=== PATIENT | female | born 1955 | race Two or more races ===

== ENCOUNTER 2018-09-13 08:00 | Inpatient (IN) | payer OTHER ==
[~2018-09-13] VITALS: Ht 144.8 cm; Wt 52.6 kg
[~2018-09-13 08:00] MED LIST: NABUMETONE500 MG PO; PERCOCET 5/3251 TAB PO
[2018-09-13] MEDS ORDERED: HYDROCHLOROTHIA25 MG (09:45)
[2018-09-13] MEDS ORDERED: PLAVIX75 MG (09:45)
[2018-09-13] MEDS ORDERED: COZAAR50 MG (09:45)
[2018-09-13] MEDS ORDERED: TIROSINT25 MCG (09:45)
[2018-09-13] MEDS ORDERED: NEURONTIN300 MG (09:46)
[2018-09-13] MEDS ORDERED: ZANTAC300 MG (09:46)
[2018-09-13] MEDS ORDERED: TRICOR145 MG (09:46)
[2018-09-13] MEDS ORDERED: SIMVASTATIN40 MG (09:46)
[2018-09-13] MEDS ORDERED: ZOCOR40 MG PO (10:07)
[2018-09-26] MEDS ORDERED: ACETAMINOPHEN-1 EAC2 PO (17:26)
== END 2018-09-26 18:31 | disposition home or self-care (01) | DRG 470 ==
LOC: O/R 09-24 05:50 → SURG 09-24 05:50 → SURH 09-24 07:00 → SURG 09-24 16:41
PROVIDERS: ADMIT Orthopaedic Surgery
PROC: 0MNP0ZZ Release Left Knee Bursa and Ligament, Open Approach (ICD-10-PCS; 2018-09-24)
PROC: 0SRD0JZ Replacement of Left Knee Joint with Synthetic Substitute, Open Approach (ICD-10-PCS; principal; 2018-09-24 07:00)
DX: M17.12 Unilateral primary osteoarthritis, left knee (principal); D62 Acute posthemorrhagic anemia; M81.8 Other osteoporosis without current pathological fracture; I10 Essential (primary) hypertension

== ENCOUNTER 2020-12-20 08:15 | Inpatient (IN) | payer OTHER ==
[~2020-12-20] VITALS: Ht 144.8 cm; Wt 54.0 kg
[~2020-12-20 08:15] MED LIST changes: +ACETAMINOPHEN-1 EAC2 PO; +COZAAR50 MG; +HYDROCHLOROTHIA25 MG; +NEURONTIN300 MG; +PLAVIX75 MG; +SIMVASTATIN40 MG; +TIROSINT25 MCG; +TRICOR145 MG; +ZANTAC300 MG; +ZOCOR40 MG PO
== END 2020-12-30 18:47 | disposition home or self-care (01) | DRG 747 ==
LOC: SURH 12-23 08:15 → O/R 12-29 08:31 → OB/GYN 12-29 19:58
PROVIDERS: ADMIT Specialist; ATTEND Specialist
PROC: 0UBG8ZZ Excision of Vagina, Via Natural or Artificial Opening Endoscopic (ICD-10-PCS; principal; 2020-12-29 07:00)
DX: D28.1 Benign neoplasm of vagina (principal); N76.1 Subacute and chronic vaginitis; A63.0 Anogenital (venereal) warts; R87.619 Unspecified abnormal cytological findings in specimens from cervix uteri; I10 Essential (primary) hypertension; E03.8 Other specified hypothyroidism; E78.5 Hyperlipidemia, unspecified

== ENCOUNTER 2025-05-03 09:19 | Inpatient (IN) | payer OTHER ==
[~2025-05-03] VITALS: Ht 142.2 cm; Wt 52.2 kg
[2025-05-03] MEDS ORDERED: LEVOTHYROXINE25 MCG (09:51)
[2025-05-03] MEDS ORDERED: NASAL MIST126 ML (09:51)
[2025-05-03] MEDS ORDERED: 0.9 % SODIUM CHLORIDE 1,000 ML IV SCH (10:15)
[2025-05-03] MEDS ORDERED: FAMOTIDINE/PF 20 MG/2 ML VIAL IV ONE (10:15)
[2025-05-03] MEDS ORDERED: METRONIDAZOLE/SODIUM CHLORIDE 500 MG/100 ML PIGGYBACK IV ONE ×2 (10:15→10:25)
[2025-05-03] MEDS ORDERED: CEFTRIAXONE SODIUM 500 MG VIAL IV ONE (10:15)
[2025-05-03] MEDS ORDERED: FAMOTIDINE/PF 20 MG/2 ML VIAL ONE ×2 (10:25→19:46)
[2025-05-03 10:38] LABS: BASO % 0.4 % (0.1-1.2); EOS # 0.44 (0.04-0.54); EOS % 5.2 % (0.7-7.0); LYMPH # 2.18 (1.18-3.74); LYMPH % 25.7 % (19.3-53.1); MEAN PLATELET VOLUME 9.40 fl (9.4-12.4); MONO # 0.60 (0.24-0.82); MONO % 7.1 % (4.7-12.5); NEUT # 5.19 (1.56-6.13); NEUT % 61.2 % (34.0-71.1); RED CELL DISTRIBUTION WIDTH 14.6 % (11.6-14.4)
[2025-05-03 10:54] LABS: ERYTHROCYTE SEDIMENTATION RATE 19 mm/hr (0-30)
[2025-05-03 11:06] LABS: INR 1.04
[2025-05-03 11:24] LABS: URINE APPEARANCE Clear; URINE BILIRRUBIN Negative (NEGATIVE); URINE BLOOD Negative; URINE COLOR Yellow; URINE GLUCOSE Negative (NEGATIVE); URINE KETONE Negative (NEGATIVE); URINE LEUKOCYTE Moderate; URINE NITRATE Negative; URINE PROTEIN Negative (NEGATIVE); URINE UROBILINOGEN 0.2 E.U./dl
[2025-05-03 11:28] LABS: URINE BACTERIA 75.5 uL (0.0-1933); URINE EPITHELIAL CELLS 8.7 uL (0.0-38.8); URINE RBC 6.1 uL (0.0-20.8); URINE WBC 205.0 uL (0.0-23.2)
[2025-05-03 11:44] LABS: URINE CAST 0.29 uL (0.0-1.40)
[2025-05-03 11:52] LABS: ALT/SGPT 21.0 U/L (12-78); AST/SGOT 22.0 U/L (15-37); BILIRUBIN TOTAL 0.4 mg/dL (0.3-1.2); BUN CREA RATIO 32.0 (7.0-25.0); CREATININE SERUM 0.84 mg/dL (0.55-1.02); GFR 67.42; GLOBULINA 3.9 G/DL (2.4-3.5); GLUCOSE FASTING 125.0 mg/dL (65-100); OSMOLALITY SERUM 288.0 MOSM/KG (275-295)
[2025-05-03] MEDS ORDERED: FAMOTIDINE/PF 20 MG in 0.9 % SODIUM CHLORIDE 8 ML IV PUSH SCH (18:26)
[2025-05-03] MEDS ORDERED: CANDESARTAN CILEXETIL 32 MG TABLET PO SCH (18:28)
[2025-05-03] MEDS ORDERED: AMLODIPINE BESYLATE 10 MG TABLET PO SCH (18:28)
[2025-05-03] MEDS ORDERED: ACETAMINOPHEN 325 MG TABLET PO PRN (18:30)
[2025-05-03] MEDS ORDERED: ONDANSETRON HCL 4 MG in 0.9 % SODIUM CHLORIDE 50 ML IV PRN (18:30)
[2025-05-03] MEDS ORDERED: CIPROFLOXACIN IN 5 % DEXTROSE 200 ML IV SCH (18:37)
[2025-05-03] MEDS ORDERED: CIPROFLOXACIN IN 5 % DEXTROSE 400 MG/200 ML PIGGYBAG IV ONE (19:46)
[2025-05-04 04:00] VITALS: BP 145/70; O2SAT 100
[2025-05-04 16:44] VITALS: BP 119/67; O2SAT 98
[2025-05-05 01:20] VITALS: BP 102/61; O2SAT 100
[2025-05-05 08:22] VITALS: BP 109/69; O2SAT 99
[2025-05-05] MEDS ORDERED: VANCOMYCIN HCL 5 MG/ML REDILUIDO IV SCH (12:00)
[2025-05-05] MEDS ORDERED: ENOXAPARIN SODIUM 40 MG/0.4 ML SYRINGE SUBCUTANEO NR (12:00)
[2025-05-05 16:00] VITALS: BP 133/66; O2SAT 99
[2025-05-05 17:14] LABS: BUN CREA RATIO 24.0 (7.0-25.0); CREATININE SERUM 0.79 mg/dL (0.55-1.02); GFR 72.37; GLUCOSE FASTING 131.0 mg/dL (65-100); OSMOLALITY SERUM 291.0 MOSM/KG (275-295)
[2025-05-06 00:53] VITALS: BP 106/56; O2SAT 95
[2025-05-06 05:35] VITALS: BP 120/66
[2025-05-06] MEDS ORDERED: LEVOTHYROXINE SODIUM 25 MCG TABLET PO SCH (06:00)
[2025-05-06 08:26] VITALS: BP 148/70; O2SAT 98
[2025-05-06] MEDS ORDERED: ENOXAPARIN SODIUM 40 MG/0.4 ML SYRINGE SUBCUTANEO SCH (09:00)
[2025-05-06] MEDS ORDERED: CEFTRIAXONE SODIUM 2,000 MG in 0.9 % SODIUM CHLORIDE 100 ML IV SCH (12:00)
[2025-05-06 17:30] VITALS: BP 124/73; O2SAT 100
[2025-05-07 00:16] VITALS: BP 94/53; O2SAT 98
[2025-05-07 11:26] VITALS: BP 139/69; O2SAT 98
[2025-05-07] MEDS ORDERED: AMLODIPINE BESYLATE 10 MG TABLET PO SCH (12:00)
[2025-05-07 17:19] VITALS: BP 127/71; O2SAT 98
[2025-05-08 08:00] VITALS: BP 140/60; O2SAT 98
[2025-05-08 15:55] VITALS: BP 138/80; O2SAT 96
[2025-05-08 15:56] VITALS: BP 116/70; O2SAT 98
[2025-05-08 16:07] VITALS: BP 118/68; O2SAT 97
[2025-05-08] MEDS ORDERED: LACTOBACILLUS ACIDOPHILUS 1 CAP CAP PO SCH (17:00)
[2025-05-09 00:30] VITALS: BP 108/60; O2SAT 98
[2025-05-09 08:15] VITALS: BP 113/64; O2SAT 98
[2025-05-09] MEDS ORDERED: CHLORHEXIDINE GLUCONATE 120 ML BOTTLE TOP SCH (09:00)
[2025-05-09] MEDS ORDERED: CIPRO500 MG PO (10:38)
[2025-05-09] MEDS ORDERED: METRONIDAZOLE250 MG PO (10:40)
== END 2025-05-09 12:39 | disposition home or self-care (01) | DRG 603 ==
LOC: ER 09:19 → SURG 18:29 → SEC-K 18:29 → SURG 05-04 00:33
PROVIDERS: Internal Medicine Infectious Disease; Student in an Organized Health Care Education/Training Program; ADMIT Internal Medicine; ATTEND Internal Medicine
PROC: BW21YZZ Computerized Tomography (CT Scan) of Abdomen and Pelvis using Other Contrast (ICD-10-PCS; principal; 2025-05-03)
DX: L02.216 Cutaneous abscess of umbilicus (principal); K63.2 Fistula of intestine; B96.20 Unspecified Escherichia coli [E. coli] as the cause of diseases classified elsewhere; I10 Essential (primary) hypertension; E78.5 Hyperlipidemia, unspecified; E07.9 Disorder of thyroid, unspecified; G62.9 Polyneuropathy, unspecified; M85.80 Other specified disorders of bone density and structure, unspecified site